=== PATIENT | female | born 1950 | race Caucasian/White ===

== ENCOUNTER → 2016-12-24 11:03 | Outpatient (CLI) | payer MEDICARE, OTHER ==
[2013-10-01 06:30] VITALS: BMI 28.6
[~2016-12-24 11:03] MED LIST: CELEXA10 MG PO; HYDROCHLOROTHIA25 MG PO; HYDROCODONE-ACET5 ML PO; LIPITOR40 MG PO; PHENERGAN25 MG RC; PRILOSEC20 MG PO; REQUIP0.25 MG PO; TRAVATAN Z2.5 ML LEFT EYE; ZOFRAN4 MG PO
== END | disposition home or self-care (01) ==
LOC: D.US 11:00
DX: M79.604 Pain in right leg (principal); M79.605 Pain in left leg; G89.29 Other chronic pain; R60.0 Localized edema